=== PATIENT | female | born 1990 | race Caucasian/White ===

== ENCOUNTER 2016-12-22 19:59 | Emergency (ER) | payer BC ==
[2016-12-22] MEDS ORDERED: Ondansetron 4 MG/2 ML SDV IVPUSH ONE (20:14)
[2016-12-22] MEDS ORDERED: Sodium Chloride 0.9% 10 ML Syringe FLUSH PRN (20:14)
[2016-12-22] MEDS ORDERED: Sodium Chloride 0.9% 1,000 ML IV ONE (20:14)
[2016-12-22] MEDS ORDERED: Sodium Chloride 0.9% 2.5 ML Syringe FLUSH PRN (20:14)
--- NOTE | 2016-12-22 20:59 | EDM.PDOC ---
ED HPI GENERAL MEDICAL PROBLEM - General Chief Complaint: Abdominal Pain Stated Complaint: PT HAS DIFFICULTY BREATHING Time Seen by Provider: 12/22/16 20:13 - History of Present Illness INITIAL COMMENTS - FREE TEXT/NARRATIVE: HISTORY AND PHYSICAL: History of present illness: Patient's 26-year-old white female who presents with concern of nausea and vomiting she states is also mild cough she did have recent sinus surgery feels that her nausea and vomiting may be related to pain medication she's been. No fever chills diarrhea vaginal discharge bleeding or other concern Review of systems: As per history of present illness and below otherwise all systems reviewed and negative. Past medical history: As per history of present illness and as reviewed below otherwise noncontributory. Surgical history: As per history of present illness and as reviewed below otherwise noncontributory. Social history: No reported history of drug or alcohol abuse. Family history: As per history of present illness and as reviewed below otherwise noncontributory. Physical exam: HEENT: Atraumatic, normocephalic, pupils reactive, negative for conjunctival pallor or scleral icterus, mucous membranes dry throat clear, neck supple, nontender, trachea midline. Lungs: Clear to auscultation, breath sounds equal bilaterally, chest nontender. Heart: S1S2, regular, negative for clicks, rubs, or JVD. Abdomen: Soft, nondistended, nontender. Negative for masses or hepatosplenomegaly. Negative for costovertebral tenderness. Pelvis: Stable nontender. Genitourinary: Deferred. Rectal: Deferred. Extremities: Atraumatic, negative for cords or calf pain. Neurovascular unremarkable. Neuro: Awake, alert, oriented. Cranial nerves II through XII unremarkable. Cerebellum unremarkable. Motor and sensory unremarkable throughout. Exam nonfocal. Diagnostics: CBC CMP lipase chest x-ray UA hCG Therapeutics: Normal saline 1 L bolus Zofran 4 mg IV Impression: #1 vomiting with dehydration Definitive disposition and diagnosis as appropriate pending reevaluation and review of above. 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 Pain Score (Numeric/FACES): 4 - Related Data Allergies Allergy/AdvReac Type Severity Reaction Status Date / Time hydrocodone Allergy Unknown Other Verified 12/22/16 20:06 ceftriaxone sodium Allergy Hives Verified 12/22/16 20:06 [From Rocephin] Home Meds: Home Meds oxyCODONE 5 mg PO Q6H PRN 10/16/15 [History] Oxymetazoline [Afrin Original 0.05% Nasal [place]] 15 ml JACINTO BID PRN 10/18/15 [ History] Sodium Chloride [Saline Nasal [place]] 45 ml NS ASDIRECTED PRN 10/18/15 [History] Past Medical History HEENT History: Reports: Epistaxis Cardiovascular History: Reports: None Respiratory History: Reports: None Gastrointestinal History: Reports: GERD 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 Musculoskeletal History: Reports: None Neurological History: Reports: None Psychiatric History: Reports: None Endocrine/Metabolic History: Reports: None Hematologic History: Reports: None Immunologic History: Reports: None Oncologic (Cancer) History: Reports: None Dermatologic History: Reports: None - Infectious Disease History Infectious Disease History: Reports: Chicken pox Other Infectious Disease History: herpes simplex 1 - Past Surgical History Head Surgeries/Procedures: Reports: None HEENT Surgical History: Reports: Oral surgery, Other (see below) Other HEENT Surgeries/Procedures: sinus surgery Cardiovascular Surgical History: Reports: None Respiratory Surgical History: Reports: None GI Surgical History: Reports: Other (see below) Other GI Surgeries/Procedures: pt reports surgery for GERD Endocrine Surgical History: Reports: None Neurological Surgical History: Reports: None Musculoskeletal Surgical History: Reports: Other (see below) Other Musculoskeletal Surgeries/Procedures:: bilat. ankle surgeries and bilateral achlies lengthening Oncologic Surgical History: Reports: None Dermatological Surgical History: Reports: None Social & Family History - Family History Family Medical History: Noncontributory - Tobacco Use Smoking Status *Q: Never Smoker Second Hand Smoke Exposure: No - Alcohol Use Days Per Week of Alcohol Use: 0 Number of Drinks Per Day: 2 Total Drinks Per Week: 0 - Recreational Drug Use Recreational Drug Use: No ED ROS GENERAL - Review of Systems Review Of Systems: ROS reveals no pertinent complaints other than HPI. ED EXAM, GENERAL - Physical Exam Exam: See Below (See dictation) Course - Vital Signs Last Recorded V/S: Last Vital Signs Temp 37.8 C 12/22/16 22:07 Pulse 145 H 12/22/16 22:07 Resp 20 12/22/16 22:07 BP 125/69 12/22/16 22:07 Pulse Ox 90 L 12/22/16 22:07 - Orders/Labs/Meds Orders: Active Orders 24 hr Category Date Time Status RT Aerosol Therapy [RC] ASDIRECTED Care 12/22/16 21:59 Active Chest 1V Frontal [CR] Stat Exams 12/22/16 20:14 Taken Head wo Cont [CT] Stat Exams 12/22/16 23:07 Taken Max Facial Sinus wo Cont [CT] Stat Exams 12/22/16 23:07 Taken Sodium Chloride 0.9% [Saline Flush] Med 12/22/16 20:14 Active 10 ml FLUSH ASDIRECTED PRN Sodium Chloride 0.9% [Saline Flush] Med 12/22/16 20:14 Active 2.5 ml FLUSH ASDIRECTED PRN Saline Lock Insert [OM.PC] Stat Oth 12/22/16 20:13 Ordered Medication Orders Sodium Chloride (Saline Flush) 10 ml FLUSH ASDIRECTED PRN PRN Reason: Keep Vein Open Sodium Chloride (Saline Flush) 2.5 ml FLUSH ASDIRECTED PRN PRN Reason: Keep Vein Open Labs: Laboratory Tests 12/22/16 12/22/16 12/22/16 Range/Units 20:41 20:41 23:08 WBC 15.48 H (4.0-11.0) K/uL RBC 4.18 L (4.30-5.90) M/uL Hgb 12.0 (12.0-16.0) g/dL Hct 37.0 (36.0-46.0) % MCV 88.5 (80.0-98.0) fL MCH 28.7 (27.0-32.0) pg MCHC 32.4 (31.0-37.0) g/dL RDW Std Deviation 42.3 (28.0-62.0) fl RDW Coeff of Rhonda 13 (11.0-15.0) % Plt Count 322 (150-400) K/uL MPV 8.90 (7.40-12.00) fL Neut % (Auto) 80.7 H (48.0-80.0) % Lymph % (Auto) 6.5 L (16.0-40.0) % Bowman % (Auto) 7.4 (0.0-15.0) % Eos % (Auto) 5.1 (0.0-7.0) % Baso % (Auto) 0.3 (0.0-1.5) % Neut # 12.5 H (1.4-5.7) K/uL Lymph # 1.0 (0.6-2.4) K/uL Bowman # 1.1 H (0.0-0.8) K/uL Eos # 0.8 H (0.0-0.7) K/uL Baso # 0.1 (0.0-0.1) K/uL Nucleated RBC % 0.0 /100WBC Nucleated RBCs # 0 K/uL Sodium 139 (136-146) mmol/L Potassium 3.7 (3.5-5.1) mmol/L Chloride 105 (98-110) mmol/L Carbon Dioxide 24 (21-31) mmol/L BUN 8 (6.0-23.0) mg/dL Creatinine 0.7 (0.6-1.5) mg/dL Est Cr Clr Drug Dosing 111.51 mL/min Estimated GFR (MDRD) > 60.0 ml/min Glucose 107 (60-110) mg/dL Calcium 9.3 (8.8-10.8) mg/dL Total Bilirubin 0.3 (0.1-1.5) mg/dL AST 74 H (5-40) IU/L ALT 88 H (8-54) IU/L Alkaline Phosphatase 133 (40-150) Total Protein 7.8 (6.0-8.0) g/dL Albumin 4.2 (3.5-5.0) g/dL Globulin 3.6 H (2.0-3.5) g/dL Albumin/Globulin Ratio 1.2 L (1.3-2.8) Lipase 27 (7-80) U/L Urine HCG, Qual NEGATIVE (NEGATIVE) Meds: Medications Generic Name Dose Route Start Last Admin Trade Name Freq PRN Reason Stop Dose Admin Sodium Chloride 10 ml 12/22/16 20:14 Saline Flush FLUSH ASDIRECTED PRN Keep Vein Open Sodium Chloride 2.5 ml 12/22/16 20:14 Saline Flush FLUSH ASDIRECTED PRN Keep Vein Open Discontinued Medications Generic Name Dose Route Start Last Admin Trade Name Freq PRN Reason Stop Dose Admin Albuterol/Ipratropium 3 ml 12/22/16 21:58 12/22/16 22:03 Duoneb 3.0-0.5 Mg/3 Ml NEB 12/22/16 21:59 3 ml ONETIME ONE Administration Albuterol/Ipratropium Confirm 12/22/16 22:00 Duoneb 3.0-0.5 Mg/3 Ml Administered 12/22/16 22:01 Dose 3 ml .ROUTE .STK-MED ONE Sodium Chloride 1,000 mls @ 999 mls/hr 12/22/16 20:14 12/22/16 21:07 Normal Saline IV 12/22/16 21:14 999 mls/hr STAT ONE Administration Ondansetron HCl 4 mg 12/22/16 20:14 12/22/16 21:07 Zofran IVPUSH 12/22/16 20:15 4 mg ONETIME ONE Administration Departure - Departure Time of Disposition: 23:56 Disposition: Home, Self-Care 01 Condition: good Clinical Impression: Vomiting, Dehydration Forms: ED Department Discharge Additional Instructions: The following information is given to patients seen in the emergency department who are being discharged to home. This information is to outline your options for follow-up care. We provide all patients seen in our emergency department with a follow-up referral. The need for follow-up, as well as the timing and circumstances, are variable depending upon the specifics of your emergency department visit. If you don't have a primary care physician on staff, we will provide you with a referral. We always advise you to contact your personal physician following an emergency department visit to inform them of the circumstance of the visit and for follow-up with them and/or the need for any referrals to a consulting specialist. The emergency department will also refer you to a specialist when appropriate. This referral assures that you have the opportunity for followup care with a specialist. All of these measure are taken in an effort to provide you with optimal care, which includes your followup. Under all circumstances we always encourage you to contact your private physician who remains a resource for coordinating your care. When calling for followup care, please make the office aware that this follow-up is from your recent emergency room visit. If for any reason you are refused follow-up, please contact the [facility] emergency department at and asked to speak to the emergency department charge nurse. Continue Augmentin as prescribed stop hydrocodone push fluids followup primary medical doctor/ENT 2440 hours return as needed as discussed - My Orders Last 24 Hours: My Active Orders 12/22/16 20:13 Saline Lock Insert [OM.PC] Stat 12/22/16 20:14 Chest 1V Frontal [CR] Stat Sodium Chloride 0.9% [Saline Flush] 10 ml FLUSH ASDIRECTED PRN Sodium Chloride 0.9% [Saline Flush] 2.5 ml FLUSH ASDIRECTED PRN 12/22/16 21:59 RT Aerosol Therapy [RC] ASDIRECTED 12/22/16 23:07 Head wo Cont [CT] Stat Max Facial Sinus wo Cont [CT] Stat - Assessment/Plan Last 24 Hours: My Active Orders 12/22/16 20:13 Saline Lock Insert [OM.PC] Stat 12/22/16 20:14 Chest 1V Frontal [CR] Stat Sodium Chloride 0.9% [Saline Flush] 10 ml FLUSH ASDIRECTED PRN Sodium Chloride 0.9% [Saline Flush] 2.5 ml FLUSH ASDIRECTED PRN 12/22/16 21:59 RT Aerosol Therapy [RC] ASDIRECTED 12/22/16 23:07 Head wo Cont [CT] Stat Max Facial Sinus wo Cont [CT] Stat
[2016-12-22 21:08] LABS: CHLORIDE,CL 105 mmol/L (98-110); SODIUM,NA 139 mmol/L (136-146)
[2016-12-22] MEDS ORDERED: Albuterol/Ipratropium 3.0-0.5 MG/3 ML Neb Soln NEB ONE (21:58)
[2016-12-22] MEDS ORDERED: Albuterol/Ipratropium 3.0-0.5 MG/3 ML Neb Soln ONE (22:00)
[2016-12-23 00:22] VITALS: BP 105/61
--- NOTE | 2016-12-25 17:02 | CR ---
EXAM DATE: 12/22/16 PATIENT'S AGE: 26 Patient: GRAZYNA SMITHNOR Facility: [place], [place] Site . Site : 1990 Study: XRay Chest [id number]/3/2017 8:50:57 PM Ordering Physician: Ronnell Jackson Final Report: INDICATION: Chest pain TECHNIQUE: Chest radiograph 1 view COMPARISON: 10/02/16 FINDINGS: Cardiovascular and mediastinum: The cardiac silhouette is normal in appearance and size. Mediastinum is within normal limits. Lungs and pleural spaces: Both lungs are unremarkable in appearance. No sign of pleural effusion. No pneumothorax is seen. Bones and soft tissues: No significant findings. IMPRESSION: 1. No acute cardiopulmonary disease seen. Dictated by: Del Luis MD @ 12/22/2016 20:57:08 (Electronic Signature) Report Signed by Proxy and Original Signed Document filed in the Medical Record. [facility]
--- NOTE | 2016-12-25 17:10 | CT ---
EXAM DATE: 12/22/16 PATIENT'S AGE: 26 Patient: GRAZYNA PADGETT Facility: [place], [place] Site . Site : 1990 Study: CT Head [id number]/3/2017 11:36:27 PM Ordering Physician: Ronnell Jackson Final Report: INDICATION: Status post sinus surgery TECHNIQUE: CT head without contrast. COMPARISON: None FINDINGS: CSF spaces: Within normal limits for age. Brain parenchyma: The darden-white differentiation is normal. No sign of mass, hemorrhage, or midline shift. Skull base and calvarium: Pansinus disease with obstruction of the right ostiomeatal complex and frontal recesses. The visualized orbits are grossly unremarkable. No skull fractures. IMPRESSION: No intracranial abnormalities. Pansinus disease with obstruction of the right ostiomeatal complex and frontal recesses.. Dictated by Niall Negron MD @ 12/22/2016 11:40:16 PM Dictated by: Niall Negron MD @ 12/22/2016 23:40:26 (Electronic Signature) Report Signed by Proxy and Original Signed Document filed in the Medical Record. [facility]
--- NOTE | 2016-12-25 17:12 | CT ---
EXAM DATE: 12/22/16 PATIENT'S AGE: 26 Patient: GRAZYNA PADGETT Facility: [place], [place] Site . Site : 1990 Study: CT Facial [id number]/3/2017 11:37:13 PM Ordering Physician: Ronnell Jackson Final Report: INDICATION: Status post sinus surgery TECHNIQUE: CT maxillofacial without contrast. COMPARISON: None FINDINGS: Facial bones: No fractures or bone lesions. Specifically the nasal bones, temporomandibular joints, maxilla and mandible appear intact. Orbits and globes: Unremarkable. Sinuses: There is areas disease with obstructive frontal recesses. Soft tissues: Unremarkable. IMPRESSION: Pansinus disease. Dictated by Niall Negron MD @ 12/22/2016 11:43:56 PM Dictated by: Niall Negron MD @ 12/22/2016 23:44:02 (Electronic Signature) Report Signed by Proxy and Original Signed Document filed in the Medical Record. [facility]
== END 2016-12-23 00:10 | disposition home or self-care (01) ==
LOC: MW.ED 19:59
DX: E86.0 Dehydration (principal); K21.9 Gastro-esophageal reflux disease without esophagitis; Z88.5 Allergy status to narcotic agent; Z88.6 Allergy status to analgesic agent; Z98.890 Other specified postprocedural states
CPT/HCPCS: 36415; 70450; 70486; 71010; 80053; 81025; 83690; 85025; 87804; 94664; 96360; 99284; J2405; J7040

== ENCOUNTER 2016-12-23 14:13 | Emergency (ER) | payer BC ==
[2016-12-23] MEDS ORDERED: Albuterol/Ipratropium 3.0-0.5 MG/3 ML Neb Soln NEB ONE (14:14)
[2016-12-23] MEDS ORDERED: methylPREDNISolone Sodium Succinate 125 MG/2 ML SDV IM ONE (14:40)
--- NOTE | 2016-12-23 14:41 | EDM.PDOC ---
ED HISTORY OF PRESENT ILLNESS - General Chief Complaint: Respiratory Problem Stated Complaint: TROUBLE BREATHING Time Seen by Provider: 12/23/16 14:41 Source of Information: Reports: Patient - History of Present Illness INITIAL COMMENTS - FREE TEXT/NARRATIVE: HISTORY AND PHYSICAL: History of present illness: [] Patient has had cough for a week increasing in severity at times with audible wheeze, she was in last night with full lab workup as well as chest x- ray and influenza testing. She is returned with cough and wheeze generally coughing until she vomits otherwise no nausea chest pain headache dizziness or palpitation no bowel or urine symptoms Review of systems: As per history of present illness and below otherwise all systems reviewed and negative. Past medical history: As per history of present illness and as reviewed below otherwise noncontributory. Surgical history: As per history of present illness and as reviewed below otherwise noncontributory. Social history: No reported history of drug or alcohol abuse. Family history: As per history of present illness and as reviewed below otherwise noncontributory. Physical exam: HEENT: Atraumatic, normocephalic, pupils reactive, negative for conjunctival pallor or scleral icterus, mucous membranes moist, throat clear, neck supple, nontender, trachea midline. Lungs: Clear to auscultation, breath sounds equal bilaterally, chest nontender. Heart: S1S2, regular, negative for clicks, rubs, or JVD. Abdomen: Soft, nondistended, nontender. Negative for masses or hepatosplenomegaly. Negative for costovertebral tenderness. Pelvis: Stable nontender. Genitourinary: Deferred. Rectal: Deferred. Extremities: Atraumatic, negative for cords or calf pain. Neurovascular unremarkable. Neuro: Awake, alert, oriented. Cranial nerves II through XII unremarkable. Cerebellum unremarkable. Motor and sensory unremarkable throughout. Exam nonfocal. Diagnostics: [] CBC CMP chest x-ray on file Influenza Therapeutics: [] Dual neb Solu-Medrol Z-Jordan Medrol Dosepak HFA DuoNeb Impression: [] Acute bronchitis Definitive disposition and diagnosis as appropriate pending reevaluation and review of above. - Related Data Allergies/ADRs: Allergies Allergy/AdvReac Type Severity Reaction Status Date / Time hydrocodone Allergy Unknown Other Verified 12/23/16 14:30 ceftriaxone sodium Allergy Hives Verified 12/23/16 14:30 [From Rocephin] Home Meds: Home Meds Amoxicillin/Potassium Clav [Augmentin 500-125 Tablet] 1 each PO BID 12/23/16 [ History] Levonorgestrel [Mirena] 1 unit VAG ASDIRECTED 12/23/16 [History] Past Medical History HEENT History: Reports: Epistaxis Cardiovascular History: Reports: None Respiratory History: Reports: None Gastrointestinal History: Reports: GERD Genitourinary History: Reports: None 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: Reports: 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 Musculoskeletal History: Reports: None Neurological History: Reports: None Psychiatric History: Reports: None Endocrine/Metabolic History: Reports: None Hematologic History: Reports: None Immunologic History: Reports: None Oncologic (Cancer) History: Reports: None Dermatologic History: Reports: None - Infectious Disease History Infectious Disease History: Reports: Chicken pox Other Infectious Disease History: herpes simplex 1 - Past Surgical History Head Surgeries/Procedures: Reports: None HEENT Surgical History: Reports: Oral surgery, Other (see below) Other HEENT Surgeries/Procedures: sinus surgery Cardiovascular Surgical History: Reports: None Respiratory Surgical History: Reports: None GI Surgical History: Reports: Other (see below) Other GI Surgeries/Procedures: pt reports surgery for GERD Endocrine Surgical History: Reports: None Neurological Surgical History: Reports: None Musculoskeletal Surgical History: Reports: Other (see below) Other Musculoskeletal Surgeries/Procedures:: bilat. ankle surgeries and bilateral achlies lengthening Oncologic Surgical History: Reports: None Dermatological Surgical History: Reports: None Social & Family History - Family History Family Medical History: Noncontributory - Tobacco Use Smoking Status *Q: Never Smoker Second Hand Smoke Exposure: No - Alcohol Use Days Per Week of Alcohol Use: 0 Number of Drinks Per Day: 2 Total Drinks Per Week: 0 - Recreational Drug Use Recreational Drug Use: No ED ROS GENERAL - Review of Systems Review Of Systems: ROS reveals no pertinent complaints other than HPI. ED EXAM, GENERAL - Physical Exam Exam: See Below Course - Vital Signs Last Recorded V/S: Last Vital Signs Temp 36.8 C 12/23/16 14:33 Pulse 78 12/23/16 14:58 Resp 16 12/23/16 14:58 BP 140/98 H 12/23/16 14:58 Pulse Ox 95 12/23/16 14:58 - Orders/Labs/Meds Orders: Active Orders 24 hr Category Date Time Status RT Aerosol Therapy [RC] ASDIRECTED Care 12/23/16 14:14 Active Meds: Medications Discontinued Medications Generic Name Dose Route Start Last Admin Trade Name Jeremy PRN Reason Stop Dose Admin Albuterol/Ipratropium 3 ml 12/23/16 14:14 12/23/16 14:21 Duoneb 3.0-0.5 Mg/3 Ml NEB 12/23/16 14:15 3 ml ONETIME ONE Administration Methylprednisolone Sodium Succinate 125 mg 12/23/16 14:40 12/23/16 14:56 Solu-Medrol IM 12/23/16 14:41 125 mg ONETIME ONE Administration Departure - Departure Time of Disposition: 15:13 Disposition: Home, Self-Care 01 Condition: good Clinical Impression: Acute bronchitis Instructions: Acute Bronchitis, [id number] Referrals: PCP,None [Primary Care Provider] - Forms: ED Department Discharge Additional Instructions: medication as prescribed Return if symptoms persist or worsen Followup with primary care in 2 weeks The following information is given to patients seen in the emergency department who are being discharged to home. This information is to outline your options for follow-up care. We provide all patients seen in our emergency department with a follow-up referral. The need for follow-up, as well as the timing and circumstances, are variable depending upon the specifics of your emergency department visit. If you don't have a primary care physician on staff, we will provide you with a referral. We always advise you to contact your personal physician following an emergency department visit to inform them of the circumstance of the visit and for follow-up with them and/or the need for any referrals to a consulting specialist. The emergency department will also refer you to a specialist when appropriate. This referral assures that you have the opportunity for follow-up care with a specialist. All of these measure are taken in an effort to provide you with optimal care, which includes your follow-up. Under all circumstances we always encourage you to contact your private physician who remains a resource for coordinating your care. When calling for follow-up care, please make the office aware that this follow-up is from your recent emergency room visit. If for any reason you are refused follow-up, please contact the [facility] emergency department at and asked to speak to the emergency department charge nurse. - My Orders Last 24 Hours: My Active Orders 12/23/16 14:14 RT Aerosol Therapy [RC] ASDIRECTED - Assessment/Plan Last 24 Hours: My Active Orders 12/23/16 14:14 RT Aerosol Therapy [RC] ASDIRECTED
[2016-12-23 14:58] VITALS: BP 140/98
== END 2016-12-23 15:15 | disposition home or self-care (01) ==
LOC: MW.ED 14:13
DX: J20.9 Acute bronchitis, unspecified (principal); K21.9 Gastro-esophageal reflux disease without esophagitis; Z88.5 Allergy status to narcotic agent; Z88.6 Allergy status to analgesic agent; Z98.890 Other specified postprocedural states
CPT/HCPCS: 94664; 96372; 99284; J2930